=== PATIENT | female | born 1960 | race Caucasian/White ===

== ENCOUNTER 2017-05-09 12:52 | Emergency (ER) | payer OTHER ==
[2017-05-09 12:57] VITALS: BP 149/74
--- NOTE | 2017-05-09 13:48 | ER Document Report ---
HPI - HPI Pain Level: 4 Notes: Patient is a 57-year-old female with history of chronic pain and under pain management who presents the ED for second opinion about her shingles as she was not given any pain medication or antiviral medication. Patient states that she was diagnosed with shingles by the urgent care today, and that her symptoms started on Friday with a rash. Patient states that she had a burning sensation prior to the development of the rash and the rash has been painful since then. Patient noticed that she did have small little blisters that were there that have since crusted over. Patient states that overall the pain has not been worsening. She has not noticed any purulent discharge or red streaks. Her pain management clinic told her that she could not take extra pain medication because of a shingles outbreak. Patient states that the urgent care did not give her any pain medication or any antiviral. Patient states that no antiviral was given because it was too late. No other concerns or complaints at this time. Patient has not noticed any changes in her hearing or changes in her vision. Denies any headache, fever, head injury, neck pain, changes in vision/speech/mentation/hearing, URI, sore throat, chest pain, palpitations, syncope, cough, shortness of breath, wheeze, dyspnea, abdominal pain, nausea/ vomiting/diarrhea, urinary retention, dysuria, hematuria. Denies any drug allergies or significant past medical history otherwise. - ROS Notes: REVIEW OF SYSTEMS: CONSTITUTIONAL : Denies fever, chills, or sweats. Denies recent illness. EENT: Denies eye, ear, throat, or mouth pain or symptoms. Denies nasal or sinus congestion or discharge. Denies throat, tongue, or mouth swelling or difficulty swallowing. CARDIOVASCULAR: Denies chest pain. Denies palpitations or racing or irregular heart beat. Denies ankle edema. RESPIRATORY: Denies cough, cold, or chest congestion. Denies shortness of breath, difficulty breathing, or wheezing. GASTROINTESTINAL: Denies abdominal pain or distention. Denies nausea, vomiting , or diarrhea. Denies blood in vomitus, stools, or per rectum. Denies black, tarry stools. Denies constipation. GENITOURINARY: Denies difficulty urinating, painful urination, burning, frequency, blood in urine, or discharge. MUSCULOSKELETAL: Chronic pain. SKIN: see hpi NEUROLOGICAL: Denies confusion or altered mental status. Denies passing out or loss of consciousness. Denies dizziness or lightheadedness. Denies headache. Denies weakness or paralysis or loss of use of either side. Denies problems with gait or speech. Denies sensory loss, numbness, or tingling. Denies seizures. PSYCHIATRIC: Denies anxiety or stress. Denies depression, suicidal ideation, or homicidal ideation. ALL OTHER SYSTEMS REVIEWED AND NEGATIVE. Dictation was performed using [employer] voice recognition software - DERM Skin Color: Normal Past Medical History - Social History Smoking Status: Unknown if Ever Smoked Family History: Reviewed & Not Pertinent Renal/ Medical History: Denies: Hx Peritoneal Dialysis Vertical Provider Document - CONSTITUTIONAL Agree With Documented VS: Yes Notes: PHYSICAL EXAMINATION: GENERAL: Well-appearing, well-nourished and in no acute distress. HEAD: Atraumatic, normocephalic. EYES: Pupils equal round and reactive to light, extraocular movements intact, sclera anicteric, conjunctiva are normal. Funduscopic exam unremarkable. ENT: EAC clear b/l. TM's intact b/l without erythema, fluid, or perforation. Nares patent and without discharge. oropharynx clear without exudates. No tonsilar hypertrophy or erythema. Moist mucous membranes. No sinus tenderness. NECK: Normal range of motion, supple without lymphadenopathy. No rigidity/ meningismus. LUNGS: Breath sounds clear to auscultation bilaterally and equal. No wheezes rales or rhonchi. HEART: Regular rate and rhythm without murmurs, rubs, gallops. Extremities: No cyanosis, clubbing, or edema b/l. Peripheral pulses 2+. Capillary refill less than 3 seconds. NEUROLOGICAL: Cranial nerves grossly intact. Normal speech, normal gait. Normal sensory, motor exams PSYCH: Normal mood, normal affect. SKIN: crusted over lesions on erythematous base. Unilateral to left mid forehead w/o involvement of the eyes or ears. She has a few lesions to the scalp and a patch of lesions to her forehead. + mild tenderness w/o cellulitis/ abscess or discharge. - INFECTION CONTROL TRAVEL OUTSIDE OF THE [place] IN LAST 30 DAYS: No - RESPIRATORY O2 Sat by Pulse Oximetry: 96 Course - Re-evaluation Re-evalutation: 05/09/17 13:46 Patient is an afebrile, well-hydrated, 57-year-old female who presents the ED with suspected shingles based on H&P today. Vitals are stable. PE otherwise unremarkable for any eye or ear involvement. It appears as though she is beyond the time for treatment based on history and physical exam today. I will send her home with a prescription for naproxen that she can take as needed. Conservative measures for symptoms otherwise. Recheck with your PCM in 2-3 days. Advised patient that with any vision changes or eye pain that she should get evaluated with ophthalmology. Return to the ED with any worsening/ concerning symptoms otherwise as reviewed discharge. Low suspicion/risk for any other emergent systemic condition at this time. Patient is in agreement. - Vital Signs Vital signs: Temp Pulse Resp BP Pulse Ox 98.4 F 78 20 149/74 H 96 05/09/17 12:55 05/09/17 12:55 05/09/17 12:55 05/09/17 12:55 05/09/17 12:55 Discharge - Discharge Clinical Impression: Herpes zoster Qualifiers: Herpes zoster complications: without complications Qualified Code(s): B02.9 - Zoster without complications Condition: Stable Disposition: HOME, SELF-CARE Instructions: Shingles ([facility]) Additional Instructions: Keep skin clean and dry Warm/cool compresses may help Tylenol/ibuprofen as needed You may use naproxen as needed in lieu of ibuprofen Recheck with your PCM in 2-3 days Schedule consult with ophthalmology for a recheck as well Return to the ED with any worsening symptoms and/or development of fever, headache, changes in vision/hearing, eye pain, ear pain, chest pain, palpitations, syncope, shortness of breath, trouble breathing, abdominal pain, n /v/d, or other worsening symptoms that are concerning to you. Prescriptions: Naproxen 500 mg PO BID PRN #30 tablet PRN Reason: Forms: Elevated Blood Pressure Referrals: OJSE ARENAS DO [ACTIVE STAFF] - 05/12/17
== END 2017-05-09 14:22 | disposition home or self-care (01) ==
LOC: ER 12:52
DX: B02.9 Zoster without complications (principal); G89.29 Other chronic pain; Z79.899 Other long term (current) drug therapy
CPT/HCPCS: 99283

== ENCOUNTER 2017-11-15 14:59 | Emergency (ER) | payer OTHER ==
--- NOTE | 2017-11-15 15:56 | ER Document Report ---
HPI - HPI Pain Level: 4 Notes: Patient is a 57-year-old female who presents to the ED complaining of right lateral ankle pain status post injury prior to arrival. Patient states that she is going on a step when she rolled her ankle. Patient has noticed swelling to the lateral right ankle and difficulty weightbearing because of the pain. Patient states that the pain does not radiate. She denies any significant past medical history associated. Denies any drug allergies. No other concerns or complaints at this time. Patient denies any IV drug use. Denies any headache, fever, neck pain, head injury, LOC, URI, sore throat, chest pain, palpitations, syncope, cough, shortness of breath, wheeze, dyspnea, abdominal pain, nausea/ vomiting/diarrhea, urinary retention, dysuria, hematuria, loss of control of bowel or bladder, numbness/tingling, saddle anesthesia, muscle paralysis/ weakness, or rash. - ROS Systems Reviewed and Negative: Yes All other systems reviewed and negative - MUSCULOSKELETAL Musculoskeletal: REPORTS: Extremity pain Past Medical History - Social History Smoking Status: Unknown if Ever Smoked Family History: Reviewed & Not Pertinent Patient has suicidal ideation: No Patient has homicidal ideation: No Renal/ Medical History: Denies: Hx Peritoneal Dialysis Vertical Provider Document - CONSTITUTIONAL Agree With Documented VS: Yes Notes: PHYSICAL EXAMINATION: GENERAL: Well-appearing, well-nourished and in no acute distress. LUNGS: Breath sounds clear to auscultation bilaterally and equal. No wheezes rales or rhonchi. HEART: Regular rate and rhythm without murmurs, rubs, gallops. Musculoskeletal: Rt ankle: + swelling to the lateral malleolus. + tenderness to that area as well. No other bony tenderness to the foot/ankle. N/V intact distal. Achilles intact. LROM to passive/active. Strength 4+/5 due to pain to eversion. Extremities: No cyanosis, clubbing, or edema b/l. Peripheral pulses 2+. Capillary refill less than 3 seconds. NEUROLOGICAL: Normal speech, limping gait. Normal sensory, motor exams PSYCH: Normal mood, normal affect. SKIN: Warm, Dry, normal turgor, no rashes or lesions noted. - INFECTION CONTROL TRAVEL OUTSIDE OF THE [place] IN LAST 30 DAYS: No Course - Re-evaluation Re-evalutation: 11/15/17 16:50 Patient is an afebrile, well-hydrated, 57-year-old female who presents to the ED with a distal lateral malleolus/fibular fracture as well as a stage 2 appearing talus dome fracture (nondisplaced). Vitals are acceptable. PE is otherwise unremarkable for any neurovascular compromise, obvious tendon/ ligament rupture, open fracture, septic joint. See x-ray result. Patient declined any Tylenol/Motrin at this time. Posterior ankle splint was placed today. Crutches provided. I will send her home with a Nova Lignum dispense pack. Conservative measures otherwise for symptoms. Recheck with your PCM in 1 week. Schedule an appointment with orthopedics for further evaluation and management. Return to the ED with any worsening/concerning symptoms otherwise as reviewed discharge. Patient is in agreement. - Vital Signs Vital signs: Temp Pulse Resp BP Pulse Ox 97.6 F 82 18 126/67 H 94 11/15/17 15:07 11/15/17 15:07 11/15/17 15:07 11/15/17 15:07 11/15/17 15:07 Procedures - Immobilization Right Ankle Time completed: 16:50 Pre-Proc Neuro Vasc Exam: Normal Immobilizer type: Posterior ankle Performed by: PCT Post-Proc Neuro Vasc Exam: Normal, Unchanged from pre-exam Discharge - Discharge Clinical Impression: Closed fracture of right distal fibula Qualifiers: Encounter type: initial encounter Fracture morphology: unspecified fracture morphology Qualified Code(s): S82.831A - Other fracture of upper and lower end of right fibula, initial encounter for closed fracture Talar dome fracture Qualifiers: Encounter type: initial encounter Fracture type: closed Fracture alignment: nondisplaced Laterality: right Qualified Code(s): S92.144A - Nondisplaced dome fracture of right talus, initial encounter for closed fracture Condition: Stable Disposition: HOME, SELF-CARE Instructions: Use of Crutches ([facility]), Fracture of Distal Fibula ([facility]), Oral Narcotic Medication ([facility]) Additional Instructions: Rest, Ice, Compression, Elevation Use crutches/splint as directed Tylenol/ibuprofen as needed Light stretches daily Strength exercises as able Moist heat and massage may help F/u with your PCP in 1 week for a recheck Schedule an appointment with orthopedics for further evaluation and management Return to the ED with any worsening symptoms and/or development of fever, headache, chest pain, palpitations, syncope, shortness of breath, trouble breathing, abdominal pain, n/v/d, muscle weakness/paralysis, numbness/tingling, swelling, redness, or other worsening symptoms that are concerning to you. Forms: Elevated Blood Pressure, Smoking Cessation Education Referrals: [facility] [Provider Group] - Follow up in 3-5 days
[2017-11-15] MEDS ORDERED: HYDROCODONE/ACETAMINOPHEN 5-325 MG (6 TAB/ER DISP) PO PRN (16:16)
--- NOTE | 2017-11-15 16:20 | RADIOLOGY REPORT (SQ) ---
EXAM DESCRIPTION: ANKLE RIGHT COMPLETE COMPLETED DATE/TIME: 11/15/2017 4:00 pm REASON FOR STUDY: rt lateral ankle pain s/p injury COMPARISON: None. NUMBER OF VIEWS: Three views. TECHNIQUE: AP, lateral, and oblique radiographic images acquired of the right ankle. LIMITATIONS: None. FINDINGS: MINERALIZATION: Normal. BONES: Mildly displaced oblique fracture of the fibular tip. Additionally, a subtle linear lucency t raverses the lateral aspect of the talar dome, suspicious for nondisplaced fracture. Calcaneal enthe sopathy is present. JOINTS: The tibiotalar joint effusion is present. SOFT TISSUES: Soft tissue swelling overlies the injury site. No retained radiopaque foreign body. OTHER: No other significant finding. IMPRESSION: Mildly displaced oblique fracture of the distal fibula. Additional finding of linear marques cency traversing the lateral aspect of the talar dome is highly suspicious for an additional nondispl aced fracture. Recommend correlation with mechanism of injury. TECHNICAL DOCUMENTATION: JOB ID: [id number] [email or web address]- All Rights Reserved Reading location - IP/workstation name: [email or web address]
[2017-11-15 17:01] VITALS: BP 118/70
== END 2017-11-15 17:03 | disposition home or self-care (01) ==
LOC: ER 14:59
DX: S82.431A Displaced oblique fracture of shaft of right fibula, initial encounter for closed fracture (principal); S92.144A Nondisplaced dome fracture of right talus, initial encounter for closed fracture; W10.9XXA Fall (on) (from) unspecified stairs and steps, initial encounter; Y92.830 Public park as the place of occurrence of the external cause
CPT/HCPCS: 99283

== ENCOUNTER 2018-11-15 12:14 | Observation (INO) | payer OTHER ==
[2018-11-15 12:24] LABS: ABSOLUTE EOSINOPHILS # (AUTO) 0.1 10^3/uL (0.0-0.6); ABSOLUTE LYMPHOCYTES (AUTO) 4.1 10^3/uL (0.5-4.7); ABSOLUTE MONOCYTES (AUTO) 0.9 10^3/uL (0.1-1.4); ABSOLUTE NEUT (AUTO) 4.2 10^3/uL (1.7-8.2); BASOPHILS % (AUTO) 0.4 % (0-2); EOSINOPHILS % (AUTO) 0.9 % (0-6); HEMATOCRIT 39.7 % (36.0-47.0); LYMPHOCYTES % (AUTO) 43.7 % (13-45); MEAN CORPUSCULAR HEMOGLOBIN 34.8 pg (27.0-33.4); MEAN CORPUSCULAR HGB CONC 35.2 g/dL (32.0-36.0); MEAN CORPUSCULAR VOLUME 99 fl (80-97); MONOCYTES % (AUTO) 9.7 % (3-13); PLATELET COUNT 233 10^3/uL (150-450); RED BLOOD COUNT 4.01 10^6/uL (3.72-5.28); RED CELL DISTRIBUTION WIDTH 12.8 % (11.5-14.0); SEGMENTED NEUTROPHILS % (AUTO) 45.3 % (42-78); TOTAL CELLS COUNTED % (AUTO) 100 %; WHITE BLOOD COUNT 9.3 10^3/uL (4.0-10.5)
--- NOTE | 2018-11-15 12:33 | RADIOLOGY REPORT (SQ) ---
EXAM DESCRIPTION: CT HEAD WITHOUT COMPLETED DATE/TIME: 11/15/2018 12:25 pm REASON FOR STUDY: stroke s/s COMPARISON: None. TECHNIQUE: Axial images acquired through the brain without intravenous contrast. Images reviewed wi th bone, brain and subdural windows. Additional sagittal and coronal reconstructions were generated. Images stored on PACS. All CT scanners at this facility use dose modulation, iterative reconstruction, and/or weight based d osing when appropriate to reduce radiation dose to as low as reasonably achievable (ALARA). [facility]: Dose Right [facility]: CareDose [facility]: Dose Right [facility]: Teradose 4D [facility]: TotalTakeout RADIATION DOSE: 53 mGy. LIMITATIONS: None. FINDINGS: VENTRICLES: Normal size and contour. CEREBRUM: No masses. No hemorrhage. No midline shift. No evidence for acute infarction. Normal gra y/white matter differentiation. No areas of low density in the white matter. CEREBELLUM: No masses. No hemorrhage. No alteration of density. No evidence for acute infarction. EXTRAAXIAL SPACES: No fluid collections. No masses. ORBITS AND GLOBE: No intra- or extraconal masses. Normal contour of globe without masses. CALVARIUM: No fracture. PARANASAL SINUSES: No fluid or mucosal thickening. SOFT TISSUES: No mass or hematoma. OTHER: No other significant finding. IMPRESSION: NORMAL BRAIN CT WITHOUT CONTRAST. EVIDENCE OF ACUTE STROKE: NO. COMMENT: Pertinent findings on the imaging study reported as a CRITICAL RESULT to Dr BROWN at12:18 on 11/15/2018. Category of Critical Result: CT code stroke Quality ID # [id number]: Final reports with documentation of one or more dose reduction techniques (e.g., Au tomated exposure control, adjustment of the mA and/or kV according to patient size, use of iterative reconstruction technique) TECHNICAL DOCUMENTATION: JOB ID: [id number] [employer]- All Rights Reserved Reading location - IP/workstation name: [email or web address]
--- NOTE | 2018-11-15 12:39 | RADIOLOGY REPORT (SQ) ---
EXAM DESCRIPTION: CHEST SINGLE VIEW COMPLETED DATE/TIME: 11/15/2018 12:27 pm REASON FOR STUDY: stroke s/s COMPARISON: CT chest 11/21/2009 Two-view chest 11/22/2010 EXAM PARAMETERS: NUMBER OF VIEWS: One view. TECHNIQUE: Single frontal radiographic view of the chest acquired. RADIATION DOSE: NA LIMITATIONS: None. FINDINGS: LUNGS AND PLEURA: No opacities, masses or pneumothorax. No pleural effusion. MEDIASTINUM AND HILAR STRUCTURES: No masses. Contour normal. HEART AND VASCULAR STRUCTURES: Heart normal in size. Normal vasculature. BONES: No acute findings. HARDWARE: None in the chest. OTHER: No other significant finding. IMPRESSION: NO ACUTE RADIOGRAPHIC FINDING IN THE CHEST. TECHNICAL DOCUMENTATION: JOB ID: [id number] [employer]- All Rights Reserved Reading location - IP/workstation name: [email or web address]
[2018-11-15 12:40] LABS: ALANINE AMINOTRANSFERASE 59 U/L (9-52); ALKALINE PHOSPHATASE 76 U/L (38-126); ANION GAP 9 (5-19); ASPARTATE AMINO TRANSFERASE 44 U/L (14-36); BILIRUBIN,DIRECT 0.2 mg/dL (0.0-0.4); BILIRUBIN,TOTAL 0.4 mg/dL (0.2-1.3); BLOOD UREA NITROGEN 22 mg/dL (7-20); CALCIUM 9.3 mg/dL (8.4-10.2); CARBON DIOXIDE 26 mmol/L (22-30); CHLORIDE 107 mmol/L (98-107); CREATINE KINASE 53 U/L (30-135); GLUCOSE 144 mg/dL (75-110); POTASSIUM 3.2 mmol/L (3.6-5.0); SODIUM 141.6 mmol/L (137-145); TOTAL PROTEIN 6.8 g/dL (6.3-8.2)
[2018-11-15 12:42] LABS: INTERNATIONAL RATION (INR) 0.93; PARTIAL THROMBOPLASTIN TIME 25.4 SEC (23.5-35.8)
[2018-11-15 12:45] LABS: PROTHROMBIN TIME 12.9 SEC (11.4-15.4)
[2018-11-15 12:51] LABS: CREATINE KINASE MB 0.49 ng/mL (<4.55)
[2018-11-15 12:53] LABS: TROPONIN I < 0.012 ng/mL
--- NOTE | 2018-11-15 16:46 | ER Document Report ---
Entered by DARIUS SHETTY SCRIBE 11/15/18 [id number] Acting as scribe for:JACOB MARTI MD ED General - General Chief Complaint: S/S of Possible Stroke Stated Complaint: POSSIBLE STROKE Time Seen by Provider: 11/15/18 13:07 Primary Care Provider: NINA SR DO [Primary Care Provider] - Follow up as needed Mode of Arrival: Ambulatory Information source: Patient, Relative, Emergency Med Personnel, [facility] Records Notes: Patient is a 58 year old female presenting to the emergency department via EMS accompanied by son complaining of a possible stroke onset around 1100. Patient states she was sitting at the counter with her grandaughter when she proceeded to feel light headed. She states the next thing she remembers is waking up on the floor. Son at bedside states the patient was complaining of light headedness then turned around to face him and he noted she has some left facial droop. He states she then proceeded to have a syncopal episode and states he caught the patient and laid her on the floor. Son reports the patient was unconscious for approximately 4 minutes and began talking 10 minutes after arrival. He states the patient appears very sleepy and notices she snores copiously at night. Patient denies any injury and states she has no focal pain. Patient's PCP is Dr. Sr. She states she is on chronic pain treatment for plantar fasciitis which she takes 7.5 of [place]. The patient's son reports that he witnessed her complaining of being lightheaded dizzy, when she turned he saw what appeared to be left face drooping, he caught her as she was falling and lowered her to the floor. He reports she was unresponsive about 4 minutes, then open her eyes but did not seem to be aware of her surroundings. She began talking about the time the EMS showed up with house, and became alert coherent about the time she arrived at the hospital. The patient's speech, thought content, motor function all appear to be returning to baseline according to the son. The patient is quite drowsy, and falls asleep when not stimulated. As her symptoms are improving, she is not a candidate for TPA. TRAVEL OUTSIDE OF THE [place] IN LAST 30 DAYS: No - Related Data Allergies/Adverse Reactions: latex Allergy (Verified 11/15/17 15:05) Past Medical History - General Information source: Patient, Relative, Emergency Med Personnel, [facility] Records - Social History Smoking Status: Current Every Day Smoker Cigarette use (# per day): Yes - 1 PPD Chew tobacco use (# tins/day): No Smoking Education Provided: No Frequency of alcohol use: Heavy - Son reports finding a bottle of Gin in patients bathroom Lives with: Family Family History: Reviewed & Not Pertinent Review of Systems - Review of Systems Constitutional: No symptoms reported EENT: No symptoms reported Cardiovascular: See HPI, Syncope, Lightheaded Respiratory: No symptoms reported Gastrointestinal: No symptoms reported Genitourinary: No symptoms reported Female Genitourinary: No symptoms reported Musculoskeletal: No symptoms reported Skin: No symptoms reported Hematologic/Lymphatic: No symptoms reported Neurological/Psychological: See HPI, Lost consciousness -: Yes All other systems reviewed and negative Physical Exam - Vital signs Vitals: Pulse Ox 95 11/15/18 12:19 - Notes Notes: GENERAL: Drowsy, falls asleep frequently, easily arousable. HEAD: Normocephalic, atraumatic. No facial droop. EYES: Pupils equal, round, and reactive to light. Extraocular movements intact. ENT: Oral mucosa moist. Tongue midline, no deviation. NECK: Full range of motion. Supple. Trachea midline. No bruits. LUNGS: Clear to auscultation bilaterally, no wheezes, rales, or rhonchi. No r espiratory distress. HEART: Regular rate and rhythm. No murmurs, gallops, or rubs. ABDOMEN: Soft, obese, non-tender. Non-distended. Bowel sounds present in all 4 quadrants. No guarding, rigidity, or rebound. EXTREMITIES: Moves all 4 extremities spontaneously. NEUROLOGICAL: Alert and oriented x3. Normal speech. Drowsy, falls asleep frequently, easily arousable. 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 Barely able to elevate legs off of bed, R weaker than L. Negative babinski. PSYCH: Normal affect, normal mood. SKIN: Warm, dry, normal turgor. No rashes or lesions noted. Course - Re-evaluation Re-evalutation: 11/15/18 16:29 At this time the patient's symptoms have completely resolved, she is sitting up on side of the bed alert oriented with perfectly clear speech and thought processes. We had a long discussion with the patient and her son about TIAs, risks of stroke, and workup to identify correctable causes. - Vital Signs Vital signs: Temp Pulse Resp BP Pulse Ox 98.0 F 73 18 166/78 H 95 11/15/18 15:37 11/15/18 15:00 11/15/18 15:37 11/15/18 15:37 11/15/18 15:37 - Laboratory Result Diagrams: 11/15/18 12:17 11/15/18 12:17 Laboratory results interpreted by me: 11/15/18 11/15/18 11/15/18 12:17 12:17 12:27 MCV 99 H MCH 34.8 H Potassium 3.2 L BUN 22 H Glucose 144 H POC Glucose 135 H AST 44 H ALT 59 H - Diagnostic Test Radiology reviewed: Reports reviewed - CT scan of the brain is normal. - EKG Interpretation by Me EKG shows normal: Sinus rhythm, [place], Intervals, QRS Complexes, ST-T Waves Rate: Normal - 90 Rhythm: NSR - Consults Dr. Gregory Time consulted: 16:00 Consulted provider: will come to ER - admit to [facility] Critical Care Note - Critical Care Note Total time excluding time spent on procedures (mins): 38 Discharge - Discharge Clinical Impression: Syncope and collapse, Transient ischemic attack (TIA) Condition: Stable Disposition: ADMITTED INPATIENT Admitting Provider: Hospitalist Unit Admitted: [facility] Referrals: NINA SR DO [Primary Care Provider] - Follow up as needed ED [employer]/Exc Criteria - Inclusion Criteria: 1: Patient presented to ED within 3 hours of acute ischemic stroke symptom onset? -: Yes 2: Did baseline CT exclude intracranial hemorrhage and/or other risk factors? -: Yes 3: Is the age of the patient 18 years of age or greater? -: Yes : If any of the above questions are answered "NO" then stop, patient is not a candidate for Alteplase, : If all of the above questions are answered "YES" then continue with Exclusion Criteria. - Exclusion Criteria: 1: Is there evidence of intracranial hemorrhage on baseline CT? -: No 2: Is there suspicion of subarachnoid hemorrhage (even if CT negative)? -: No 3: Is there a history of serious head trauma, recent previous stroke or NM within 3 months? -: No 4: Does the patient have a clinical presentation consistent with NM or post-NM pericarditis? -: No 5: Is there history of intracranial hemorrhage? -: No 6: On repeated measurement is Systolic BP greater than 185mmHg or Diastolic BP greater that 110 mmHg and is aggressive treatment needed to reduce blood pressure to these limits (e.g. constant infusion of an anti-hypertensive)? -: No 7: Did the patient awake with stroke symptoms? -: No 8: Has the patient had a lumbar puncture or an arterial puncture at a non- compressile site within 7 days? 9: With in the last 14 days did the patient have surgery or major trauma? -: No 10: Is the patient or less than 2 weeks? -: No 11: Was there any active bleeding or acute trauma? -: No 12: Does the patient have intracranial neoplasm, arteriovenous malformation or aneurysm? -: No 13: Does the patient have abnormal glucose (less than 50 or greater than 400mg/dl)? Record glucose in Comment. -: No 14: Patient has rapidly improving symptoms at the time Alteplase is to be Administered. -: Yes 15: Does the patient have any risks for bleeding, including but not limited to: a.: Current use of Coumadin with PT greater than 15 seconds or INR greater than 1.7. b.: Current use of Pradaxa (Dabigatran). c.: Heparin administereed within the past 48 hours and PTT elevated. d.: Platelet count less than 100,000/mm. e.: Major surgery or serious trauma within 14 days. f.: Gastrointestinal or gynecological urinary bleeding within 14 days. g.: Myocardial Infarction (NM) within 3 months. -: No : If the answer to any of the above questions is "YES" then stop, the patient is not a candidate for Alteplase. : If the answer to all of the above questions is "NO" then the patient may be eligible for the Administration of Alteplase. : If the patient is noted to have seizure activity at onset of Stroke symptoms; Consult Neurologist for further evaluation. - The patient is: -: Included and is eligible to receive Alteplase. *Initiate bed placement at [facility] level of care* Reviewed risks & benefits of thrombolytic therapy: I have reviewed the risks and benefits of thrombolytic therapy with the patient and/or his/her family. -: Excluded and not eligible to receive Alteplase for the above exclusions. -: Excluded and not eligible to receive Alteplase for other reasons (specify in comments): - Diagnosis of TIA: -: Patient presented with transient symptoms that are now resolved and no other neurologic findings are currently present. List symptoms in comments. -: Patient is NOT a candidate for tPA. -: ____(put name in comment) has been consulted for admission and continued evaluation of risk factor assessment. I personally performed the services described in the documentation, reviewed and edited the documentation which was dictated to the scribe in my presence, and it accurately records my words and actions.
[2018-11-15] MEDS ORDERED: OXYCODONE-ACETAMINOPHEN 5-325 MG TABLET PO PRN (18:09)
[2018-11-15] MEDS ORDERED: PROMETHAZINE HCL 25 MG TABLET PO PRN (18:09)
[2018-11-15] MEDS ORDERED: DEXTROSE 50%-WATER 25 GM/50 ML DISP.SYRIN IV PRN ×2 (18:09)
[2018-11-15] MEDS ORDERED: DEXTROSE 5%-NORMAL SALINE 1,000 ML IV PRN (18:09)
[2018-11-15] MEDS ORDERED: ONDANSETRON 4 MG TAB.RAPDIS PO PRN (18:09)
[2018-11-15] MEDS ORDERED: ACETAMINOPHEN 325 MG TABLET PO PRN (18:09)
[2018-11-15] MEDS ORDERED: GLUCAGON,HUMAN RECOMB 1 MG INJ SUBCUT PRN (18:09)
[2018-11-15] MEDS ORDERED: IPRATROPIUM/ALBUTEROL 0.5-2.5 MG/3 ML AMPUL NEB PRN (18:09)
[2018-11-15] MEDS ORDERED: DEXTROSE 40% GEL 15 GM TUBE PO PRN ×2 (18:09)
--- NOTE | 2018-11-15 18:09 | PDOC H&P ---
History of Present Illness Admission Date/PCP: 11/15/18 17:01 NINA SR DO History of Present Illness: JEFFRY ZHANG is a 58 year old female past medical history of hypertension, dyslipidemia, tobacco abuse (30 years), depression, plantar fasciitis was brought to ED by EMS for possible stroke. As per family she was sitting at the counter with her grandaughter when she proceeded to feel light headed. For the next thing patient remembers is waking up in the ED. Does not recall any preceding symptoms. As per ED physician's conversation with the son who was present at the time of arrival he stated patient was complaining of light headedness then turned around to face him and he noted she has some left facial droop and then had a syncopal episode and he caught the patient and laid her on the floor. Son reports the patient was unconscious for approximately 4 minutes and began talking 10 minutes after arrival. Upon arrival to ED patient's speech, thought content, motor function all appear to be returning to baseline according to the son, but she seemed to the patient is quite drowsy, and falls asleep when not stimulated. On my encounter after 5 PM patient is comfortably resting in bed in no apparent distress, alert oriented x4, normal speech, does not recall any events except the fact that she was standing at the counter and the next thing she remembers she was in the hospital. Denies any preceding events. Denies any history of head trauma, seizure disorders, recreational drug abuse, arrhythmia, CAD, prior TIA or CVA, any recent illness. Denies any fever, chills, nausea, vomiting, diarrhea, constipation or any urinary symptoms. Physical examination patient is nonfocal, speech, thought content seem to be within normal limits. A CT head in ED did not show any acute abnormalities. Was found to have a blood pressure of 150s-170s, otherwise CMP, CBC, troponins, UA all within normal limits. Social History Lives with: Family Smoking Status: Current Every Day Smoker Family History Family History: Reviewed & Not Pertinent Parental Family History Reviewed: Yes Children Family History Reviewed: Yes Sibling(s) Family History Reviewed.: Yes Medication/Allergy Home Medications: Naproxen 500 mg PO BID PRN #30 tablet 05/09/17 Allergies/Adverse Reactions: latex Allergy (Verified 11/15/17 15:05) Review of Systems Review of Systems: Per HPI. Physical Exam Vital Signs: Temp Pulse Resp BP Pulse Ox 98.0 F 73 14 168/87 H 94 11/15/18 15:37 11/15/18 15:00 11/15/18 17:01 11/15/18 17:01 11/15/18 17:01 Intake & Output 11/14/18 11/15/18 11/16/18 06:59 06:59 06:59 Weight 81.7 kg General appearance: PRESENT: no acute distress, well-developed, well-nourished Head exam: PRESENT: atraumatic, normocephalic Eye exam: PRESENT: conjunctiva pink, EOMI, PERRLA. ABSENT: scleral icterus Ear exam: PRESENT: normal external ear exam Respiratory exam: PRESENT: clear to auscultation anyi. ABSENT: rales, rhonchi, wheezes Cardiovascular exam: PRESENT: RRR. ABSENT: diastolic murmur, rubs, systolic murmur Pulses: PRESENT: normal dorsalis pedis pul GI/Abdominal exam: PRESENT: normal bowel sounds, soft. ABSENT: distended, guarding, mass, organolmegaly, rebound, tenderness Extremities exam: PRESENT: full ROM. ABSENT: calf tenderness, clubbing, pedal edema Neurological exam: PRESENT: alert, awake, oriented to person, oriented to place, oriented to time, oriented to situation, CN II-XII grossly intact. ABSENT: motor sensory deficit Psychiatric exam: PRESENT: appropriate affect, normal mood. ABSENT: homicidal ideation, suicidal ideation Skin exam: PRESENT: dry, intact, warm. ABSENT: cyanosis, rash Results Laboratory Results: 11/15/18 12:17 11/15/18 12:17 11/15/18 11/15/18 12:17 12:17 WBC 9.3 RBC 4.01 Hgb 14.0 Hct 39.7 MCV 99 H MCH 34.8 H MCHC 35.2 RDW 12.8 Plt Count 233 Seg Neutrophils % 45.3 Lymphocytes % 43.7 Monocytes % 9.7 Eosinophils % 0.9 Basophils % 0.4 Absolute Neutrophils 4.2 Absolute Lymphocytes 4.1 Absolute Monocytes 0.9 Absolute Eosinophils 0.1 Absolute Basophils 0.0 Sodium 141.6 Potassium 3.2 L Chloride 107 Carbon Dioxide 26 Anion Gap 9 BUN 22 H Creatinine 0.58 Est GFR ( Amer) > 60 Est GFR (Non-Af Amer) > 60 Glucose 144 H Calcium 9.3 Total Bilirubin 0.4 AST 44 H ALT 59 H Alkaline Phosphatase 76 Total Protein 6.8 Albumin 4.0 11/15/18 11/15/18 12:17 12:17 Creatine Kinase 53 CK-MB (CK-2) 0.49 Troponin I < 0.012 Impressions: Chest X-Ray 11/15/18 12:19 IMPRESSION: NO ACUTE RADIOGRAPHIC FINDING IN THE CHEST. Head CT 11/15/18 12:19 IMPRESSION: NORMAL BRAIN CT WITHOUT CONTRAST. EVIDENCE OF ACUTE STROKE: NO. Assessment and Plan - Diagnosis (1) Transient ischemic attack Is this a current diagnosis for this admission?: Yes Plan: Nonfocal. Back to baseline. CT head negative. MRI/MRA head, bilateral carotid Doppler, 2D echo. Fall, seizure, aspiration precautions. Admit to IMCU continue telemetry. Aspirin, high intensity statins optimize blood pressure. Strongly counseled on quitting smoking. NicoDerm patch. PT , OT, ST (2) Syncope and collapse Is this a current diagnosis for this admission?: Yes Plan: As per #1 (3) HTN (hypertension) Is this a current diagnosis for this admission?: No Plan: Permissive hypertension for the next 24 hours. PRN hydralazine for SBP>200 medic. Restart home meds and optimize blood pressure once appropriate. (4) Hyperlipidemia Is this a current diagnosis for this admission?: No Plan: Lipid panel. High intensity statins. (5) Depression Is this a current diagnosis for this admission?: No Plan: Eyes any suicidal or homicidal ideation. Start home meds. Outpatient PCP follow-up. (6) Tobacco abuse Is this a current diagnosis for this admission?: No Plan: Strongly advised about quitting. Start on NicoDerm patch. (7) Plantar fasciitis Is this a current diagnosis for this admission?: No Plan: Status post surgery. Persistent pain due to plantar fasciitis. Managed by Dr. Sr as outpatient. Start home meds. (8) Hypokalemia Is this a current diagnosis for this admission?: Yes Plan: Replaced. CMP tomorrow. (9) Obesity (BMI 30.0-34.9) Is this a current diagnosis for this admission?: Yes Plan: Diet and lifestyle modifications.
[2018-11-15] MEDS ORDERED: HYDRALAZINE HCL INJ/PF 20 MG/1 ML SDV IV PRN (18:13)
[2018-11-15] MEDS ORDERED: NICOTINE 14 MG/24 HR PATCH.TD24 TD PRN (18:15)
[2018-11-15] MEDS ORDERED: LORAZEPAM INJ 2 MG/1 ML VIAL IV PRN (18:17)
[2018-11-15] MEDS ORDERED: ASPIRIN 81 MG TABLET, CHEWABLE PO ONE (19:00)
--- NOTE | 2018-11-15 20:13 | EKG REPORT ---
SEVERITY:- NORMAL ECG - SINUS RHYTHM : Confirmed by: Tonia Resee MD 15-Nov-2018 20:12:40
[2018-11-15 20:34] LABS: URINE AMPHETAMINES SCREEN NEGATIVE; URINE BARBITURATES SCREEN NEGATIVE; URINE BENZODIAZEPINES SCREEN NEGATIVE; URINE COCAINE SCREEN NEGATIVE; URINE MARIJUANA (THC) SCREEN NEGATIVE; URINE METHADONE SCREEN NEGATIVE; URINE PHENCYCLIDINE SCREEN NEGATIVE
[2018-11-15] MEDS: HEPARIN SOD (PORCINE) 5,000 UNIT/ML 1 ML SYRINGE SUBCUT SCH (21:58)
[2018-11-15] MEDS: ATORVASTATIN CALCIUM 40 MG TABLET PO SCH (21:58)
[2018-11-15] MEDS: FAMOTIDINE 20 MG TABLET PO SCH (21:58)
[2018-11-16 05:20] LABS: ABSOLUTE EOSINOPHILS # (AUTO) 0.1 10^3/uL (0.0-0.6); ABSOLUTE LYMPHOCYTES (AUTO) 3.1 10^3/uL (0.5-4.7); ABSOLUTE MONOCYTES (AUTO) 0.7 10^3/uL (0.1-1.4); ABSOLUTE NEUT (AUTO) 3.5 10^3/uL (1.7-8.2); BASOPHILS % (AUTO) 0.3 % (0-2); EOSINOPHILS % (AUTO) 1.3 % (0-6); HEMATOCRIT 40.2 % (36.0-47.0); HEMOGLOBIN 13.9 g/dL (12.0-15.5); LYMPHOCYTES % (AUTO) 41.8 % (13-45); MEAN CORPUSCULAR HEMOGLOBIN 34.3 pg (27.0-33.4); MEAN CORPUSCULAR HGB CONC 34.6 g/dL (32.0-36.0); MEAN CORPUSCULAR VOLUME 99 fl (80-97); MONOCYTES % (AUTO) 9.7 % (3-13); PLATELET COUNT 196 10^3/uL (150-450); RED BLOOD COUNT 4.06 10^6/uL (3.72-5.28); RED CELL DISTRIBUTION WIDTH 12.9 % (11.5-14.0); SEGMENTED NEUTROPHILS % (AUTO) 46.9 % (42-78); TOTAL CELLS COUNTED % (AUTO) 100 %; WHITE BLOOD COUNT 7.4 10^3/uL (4.0-10.5)
[2018-11-16 05:22] LABS: INTERNATIONAL RATION (INR) 0.95; PROTHROMBIN TIME 13.2 SEC (11.4-15.4)
[2018-11-16 05:23] LABS: PARTIAL THROMBOPLASTIN TIME 26.5 SEC (23.5-35.8)
[2018-11-16 05:38] LABS: ALANINE AMINOTRANSFERASE 64 U/L (9-52); ALBUMIN 3.5 g/dL (3.5-5.0); ALKALINE PHOSPHATASE 80 U/L (38-126); ANION GAP 7 (5-19); ASPARTATE AMINO TRANSFERASE 38 U/L (14-36); BILIRUBIN,DIRECT 0.2 mg/dL (0.0-0.4); BILIRUBIN,TOTAL 0.3 mg/dL (0.2-1.3); BLOOD UREA NITROGEN 20 mg/dL (7-20); CARBON DIOXIDE 27 mmol/L (22-30); CHLORIDE 110 mmol/L (98-107); CHOLESTEROL 181.69 mg/dL (0-200); GLUCOSE 98 mg/dL (75-110); POTASSIUM 3.2 mmol/L (3.6-5.0); SODIUM 143.6 mmol/L (137-145); TOTAL PROTEIN 6.2 g/dL (6.3-8.2); TRIGLYCERIDES 295 mg/dL (<150)
[2018-11-16 05:49] LABS: DIRECT LDL 109 mg/dL (<100)
[2018-11-16] MEDS: HEPARIN SOD (PORCINE) 5,000 UNIT/ML 1 ML SYRINGE SUBCUT SCH ×3 (05:55→21:11)
--- NOTE | 2018-11-16 09:16 | RADIOLOGY REPORT (SQ) ---
EXAM DESCRIPTION: MRI HEAD WITHOUT; MRA HEAD WITHOUT COMPLETED DATE/TIME: 11/16/2018 9:01 am REASON FOR STUDY: TIA COMPARISON: CT brain 11/15/2018 TECHNIQUE: Multiplanar imaging includes non-contrasted T1, T2, FLAIR, and diffusion with ADC map seq uences. Images stored on PACS. Noncontrast 3D [id number]-yptlgm [place] MRA was performed. Source data and And maximum intens ity projected images were reviewed and saved to pac's. Additional 3 dimensional post-processing perf ormed to develop Maximal Intensity Projection images (MIP) LIMITATIONS: None. FINDINGS: ANATOMY: No developmental anomalies. Normal vascular flow voids. Pituitary fossa normal. CSF SPACES: Normal in size and contour. No hemorrhage. CEREBRUM: Sulci and gyri normal in size and contour. Minimal spotty age-appropriate increased white matter signal on FLAIR imaging. No evidence of hemorrhage, mass, or extraaxial fluid collection. POSTERIOR FOSSA: No signal alteration. No hemorrhage. No edema, masses or mass effect. Internal alan tory canals, cerebello-pontine angles, mastoids normal. DIFFUSION IMAGING: Negative for acute or sub-acute infarction. ORBITS: No masses. Globes normal. PARANASAL SINUSES: No fluid levels. Mucosa normal. COW MRA: No [place] stenosis, vascular malformation, or aneurysm. No other significant find ing. IMPRESSION: ESSENTIALLY NORMAL MRI OF THE BRAIN WITHOUT INTRAVENOUS GADOLINIUM CONTRAST. NO [place] STENOSIS, VASCULAR MALFORMATION, OR ANEURYSM. EVIDENCE OF ACUTE STROKE: NO. TECHNICAL DOCUMENTATION: JOB ID: [id number] [employer]- All Rights Reserved Reading location - IP/workstation name: [email or web address]
--- NOTE | 2018-11-16 09:16 | RADIOLOGY REPORT (SQ) ---
EXAM DESCRIPTION: MRI HEAD WITHOUT; MRA HEAD WITHOUT COMPLETED DATE/TIME: 11/16/2018 9:01 am REASON FOR STUDY: TIA COMPARISON: CT brain 11/15/2018 TECHNIQUE: Multiplanar imaging includes non-contrasted T1, T2, FLAIR, and diffusion with ADC map seq uences. Images stored on PACS. Noncontrast 3D psus-lj-xaltcl [place] MRA was performed. Source data and And maximum intens ity projected images were reviewed and saved to pac's. Additional 3 dimensional post-processing perf ormed to develop Maximal Intensity Projection images (MIP) LIMITATIONS: None. FINDINGS: ANATOMY: No developmental anomalies. Normal vascular flow voids. Pituitary fossa normal. CSF SPACES: Normal in size and contour. No hemorrhage. CEREBRUM: Sulci and gyri normal in size and contour. Minimal spotty age-appropriate increased white matter signal on FLAIR imaging. No evidence of hemorrhage, mass, or extraaxial fluid collection. POSTERIOR FOSSA: No signal alteration. No hemorrhage. No edema, masses or mass effect. Internal alan tory canals, cerebello-pontine angles, mastoids normal. DIFFUSION IMAGING: Negative for acute or sub-acute infarction. ORBITS: No masses. Globes normal. PARANASAL SINUSES: No fluid levels. Mucosa normal. COW MRA: No [place] of [place] stenosis, vascular malformation, or aneurysm. No other significant find ing. IMPRESSION: ESSENTIALLY NORMAL MRI OF THE BRAIN WITHOUT INTRAVENOUS GADOLINIUM CONTRAST. NO [place] STENOSIS, VASCULAR MALFORMATION, OR ANEURYSM. EVIDENCE OF ACUTE STROKE: NO. TECHNICAL DOCUMENTATION: JOB ID: [id number] [employer]- All Rights Reserved Reading location - IP/workstation name: [email or web address]
[2018-11-16] MEDS: FAMOTIDINE 20 MG TABLET PO SCH ×2 (09:47→21:11)
[2018-11-16] MEDS: DOCUSATE SODIUM 100 MG CAPSULE PO SCH ×2 (09:47→19:05)
[2018-11-16] MEDS: ASPIRIN 81 MG TABLET, CHEWABLE PO SCH (09:48)
--- NOTE | 2018-11-16 11:53 | RADIOLOGY REPORT (SQ) ---
EXAM DESCRIPTION: CAROTID DOPPLER COMPLETED DATE/TIME: 11/16/2018 11:09 am REASON FOR STUDY: TIA COMPARISON: MRI brain, MRA exam [place] 11/16/2018 CT brain 11/15/2018 TECHNIQUE: Grayscale ultrasound, Doppler velocity and spectra, and color Doppler images acquired of the extra-cranial carotid and vertebral arteries. Images stored on PACS. LIMITATIONS: None. FINDINGS: RIGHT CAROTID CCA Velocities: Within normal limits, right common carotid artery peak systolic velocity 0.53 m/sec ICA Velocities Peak systolic 1.8 m/s. End diastolic 0.6 m/s. Proximal ICA/CCA peak systolic ratio 3.1 minutes. Calcific and noncalcific plaque is present at the right carotid bifurcation. Velocities suggest 50 t o 69% diameter narrowing. This correlates visually with the grayscale imaging. LEFT CAROTID CCA Velocities: Within normal limits. Left common carotid artery peak systolic velocity 0.66 m/sec. ICA Velocities Peak systolic 0.8 m/s. End diastolic 0.28 m/s. Proximal ICA/CCA peak systolic ratio 2.0. Spectra normal. No significant plaque. VERTEBRAL ARTERIES: Antegrade flow. Normal waveforms. SUBCLAVIAN ARTERIES: Not evaluated OTHER: No other significant finding. IMPRESSION: Mixed calcific and noncalcific plaque at the right carotid bifurcation causing 50 to 69% diameter stenosis by velocity criteria. No flow significant stenosis left carotid bifurcation. Antegrade pulsatile vertebral artery flow bilaterally COMMENT: Quality ID #[id number]: Velocity criteria are extrapolated from the diameter data as defined by nadia ramos Society of Radiologists in Ultrasound Consensus Conference. Radiology 2003: 229; 340-346. TECHNICAL DOCUMENTATION: JOB ID: [id number] [employer]- All Rights Reserved Reading location - IP/workstation name: [email or web address]
[2018-11-16] MEDS ORDERED: PROMETHAZINE HCL 25 MG TABLET PO PRN (13:03)
--- NOTE | 2018-11-16 17:49 | PDOC PROGRESS REPORT ---
Subjective Progress Note for:: 11/16/18 Subjective:: No adverse events overnight. No new complaints. Vital signs been stable. No numbness or weakness or tingling. No trouble eating or drinking. No visual disturbances. Reason For Visit: TIA Physical Exam Vital Signs: Temp Pulse Resp BP Pulse Ox 97.6 F 64 16 165/93 H 99 11/16/18 11:58 11/16/18 14:00 11/16/18 14:00 11/16/18 14:00 11/16/18 14:00 Intake & Output 11/15/18 11/16/18 11/17/18 06:59 06:59 06:59 Weight 73.3 kg General appearance: PRESENT: no acute distress, cooperative, disheveled Neck exam: PRESENT: full ROM. ABSENT: carotid bruit, JVD, lymphadenopathy Respiratory exam: PRESENT: clear to auscultation anyi, symmetrical, unlabored. ABSENT: accessory muscle use, decreased breath sounds, prolonged expiratory phas, rales, rhonchi, tachypnea, wheezes Cardiovascular exam: PRESENT: RRR, +S1, +S2 Pulses: PRESENT: normal carotid pulses Vascular exam: PRESENT: normal capillary refill GI/Abdominal exam: PRESENT: normal bowel sounds, soft. ABSENT: distended, guarding, rebound, tenderness Extremities exam: ABSENT: clubbing, pedal edema Musculoskeletal exam: PRESENT: normal inspection. ABSENT: deformity Neurological exam: PRESENT: alert, awake, oriented to person, oriented to place, oriented to time, oriented to situation Psychiatric exam: PRESENT: appropriate affect, normal mood Skin exam: PRESENT: dry, warm Results Laboratory Results: 11/16/18 04:47 11/16/18 04:47 11/16/18 11/16/18 11/16/18 04:47 04:47 04:47 WBC 7.4 RBC 4.06 Hgb 13.9 Hct 40.2 MCV 99 H MCH 34.3 H MCHC 34.6 RDW 12.9 Plt Count 196 Seg Neutrophils % 46.9 Lymphocytes % 41.8 Monocytes % 9.7 Eosinophils % 1.3 Basophils % 0.3 Absolute Neutrophils 3.5 Absolute Lymphocytes 3.1 Absolute Monocytes 0.7 Absolute Eosinophils 0.1 Absolute Basophils 0.0 Sodium 143.6 Potassium 3.2 L Chloride 110 H Carbon Dioxide 27 Anion Gap 7 BUN 20 Creatinine 0.55 Est GFR ( Amer) > 60 Est GFR (Non-Af Amer) > 60 Glucose 98 Calcium 9.0 Total Bilirubin 0.3 AST 38 H ALT 64 H Alkaline Phosphatase 80 Total Protein 6.2 L Albumin 3.5 Triglycerides 295 H Cholesterol 181.69 LDL Cholesterol Direct 109 H VLDL Cholesterol 59.0 H HDL Cholesterol 49 TSH 0.35 L 11/15/18 11/15/18 12:17 12:17 Creatine Kinase 53 CK-MB (CK-2) 0.49 Troponin I < 0.012 Impressions: Chest X-Ray 11/15/18 12:19 IMPRESSION: NO ACUTE RADIOGRAPHIC FINDING IN THE CHEST. Head CT 11/15/18 12:19 IMPRESSION: NORMAL BRAIN CT WITHOUT CONTRAST. EVIDENCE OF ACUTE STROKE: NO. Brain MRI with MRA 11/16/18 00:00 IMPRESSION: ESSENTIALLY NORMAL MRI OF THE BRAIN WITHOUT INTRAVENOUS GADOLINIUM CONTRAST. NO LUMMI OF GARCIA STENOSIS, VASCULAR MALFORMATION, OR ANEURYSM. EVIDENCE OF ACUTE STROKE: NO. Carotid Doppler Study 11/16/18 00:00 IMPRESSION: Mixed calcific and noncalcific plaque at the right carotid bifurcation causing 50 to 69% diameter stenosis by velocity criteria. No flow significant stenosis left carotid bifurcation. Antegrade pulsatile vertebral artery flow bilaterally Head MRI 11/16/18 00:00 IMPRESSION: ESSENTIALLY NORMAL MRI OF THE BRAIN WITHOUT INTRAVENOUS GADOLINIUM CONTRAST. NO LUMMI OF GARCIA STENOSIS, VASCULAR MALFORMATION, OR ANEURYSM. EVIDENCE OF ACUTE STROKE: NO. Assessment and Plan - Diagnosis (1) Transient ischemic attack Is this a current diagnosis for this admission?: Yes Plan: MRI was negative. Carotid Doppler showed 50-69% stenosis in the right carotid system. Echocardiogram is pending. It sounded more like a syncopal episode and a TIA according to the patient's description. She wants to leave that we need the echocardiogram first. If it is negative, I will set her up for an outpatient Holter monitor. - Time Time Spent with patient: 25-34 minutes
[2018-11-16] MEDS: ATORVASTATIN CALCIUM 40 MG TABLET PO SCH (21:11)
[2018-11-17] MEDS: HEPARIN SOD (PORCINE) 5,000 UNIT/ML 1 ML SYRINGE SUBCUT SCH (05:24)
[2018-11-17] MEDS: ASPIRIN 81 MG TABLET, CHEWABLE PO SCH (10:02)
[2018-11-17] MEDS: FAMOTIDINE 20 MG TABLET PO SCH (10:03)
[2018-11-17] MEDS: DOCUSATE SODIUM 100 MG CAPSULE PO SCH (10:03)
[2018-11-17] MEDS ORDERED: HYDROCHLOROTHIAZIDE 12.5 MG TABLET PO SCH (10:30)
[2018-11-17 15:19] VITALS: BP 160/82
--- NOTE | 2018-11-17 15:35 | PDOC DISCHARGE SUMMARY ---
General - Admit/Disc Date/PCP Admission Date/Primary Care Provider: 11/15/18 17:01 NINA CEBALLOS, DO Discharge Date: 11/17/18 - Discharge Diagnosis (1) Transient ischemic attack Is this a current diagnosis for this admission?: Yes Summary: Workup for stroke was negative. The episode she described sounded more like a syncopal episode, but she has had no events on telemetry. No palpitations. No arrhythmias detected. Echocardiogram is pending, and if there is anything abnormal we will call her. We will set her up for an outpatient Holter monitor. She will continue on her home aspirin. - Additional Information Discharge Diet: Cardiac Discharge Activity: Activity As Tolerated Home Medications: Atorvastatin Calcium [Lipitor 20 mg Tablet] 20 mg PO QHS 11/16/18 Clobetasol Propionate [Temovate 0.05% Cream 15 gm] 1 applic TP BID 11/16/18 Hydrocodone/Acetaminophen [Charlotte 7.5-325 mg Tablet] 1 tab PO Q8HP PRN 11/16/18 Levothyroxine Sodium [Synthroid 0.1 mg Tablet] 0.2 mg PO Q6AM 11/16/18 Prednisone [Deltasone 10 mg Tablet] 10 mg PO .TAPER DOSE MDD filled 11/11 for 10 day supply 11/16/18 Telmisartan/Hydrochlorothiazid [Telmisartan-Hctz 40-12.5 mg Tb] 1 each PO DAILY 11/16/18 Tolterodine Tartrate [Tolterodine Tartrate ER] 2 mg PO DAILY 11/16/18 Venlafaxine HCl ER [Effexor Xr 75 mg Cap.sr] 75 mg PO DAILY 11/16/18 Zolpidem Tartrate [Ambien 5 mg Tablet] 10 mg PO HSP PRN 11/16/18 Aspirin [Aspirin 81 mg Chewable Tablet] 81 mg PO DAILY tab.chew 11/17/18 History of Present Illness History of Present Illness: JEFFRY ZHANG is a 58 year old female past medical history of hypertension, dyslipidemia, tobacco abuse (30 years), depression, plantar fasciitis was brought to ED by EMS for possible stroke. As per family she was sitting at the counter with her grandaughter when she proceeded to feel light headed. For the next thing patient remembers is waking up in the ED. Does not recall any preceding symptoms. As per ED physician's conversation with the son who was present at the time of arrival he stated patient was complaining of light headedness then turned around to face him and he noted she has some left facial droop and then had a syncopal episode and he caught the patient and laid her on the floor. Son reports the patient was unconscious for approximately 4 minutes and began talking 10 minutes after arrival. Upon arrival to ED patient's speech, thought content, motor function all appear to be returning to baseline according to the son, but she seemed to the patient is quite drowsy, and falls asleep when not stimulated. On my encounter after 5 PM patient is comfortably resting in bed in no apparent distress, alert oriented x4, normal speech, does not recall any events except the fact that she was standing at the counter and the next thing she remembers she was in the hospital. Denies any preceding events. Denies any history of head trauma, seizure disorders, recreational drug abuse, arrhythmia, CAD, prior TIA or CVA, any recent illness. Denies any fever, chills, nausea, vomiting, diarrhea, constipation or any urinary symptoms. Physical examination patient is nonfocal, speech, thought content seem to be within normal limits. A CT head in ED did not show any acute abnormalities. Was found to have a blood pressure of 150s-170s, otherwise CMP, CBC, troponins, UA all within normal limit s. Hospital Course Hospital Course: Workup for stroke was negative. The episode she described sounded more like a syncopal episode, but she has had no events on telemetry. No palpitations. No arrhythmias detected. Echocardiogram is pending, and if there is anything abnormal we will call her. We will set her up for an outpatient Holter monitor. She will continue on her home aspirin. Physical Exam Vital Signs: Temp Pulse Resp BP Pulse Ox 97.9 F 61 18 160/82 H 97 11/17/18 15:15 11/17/18 15:15 11/17/18 15:15 11/17/18 15:15 11/17/18 15:15 Intake & Output 11/16/18 11/17/18 11/18/18 06:59 06:59 06:59 Intake Total 237 Balance 237 Weight 73.3 kg 77.8 kg General appearance: PRESENT: no acute distress, cooperative, disheveled Neck exam: PRESENT: full ROM. ABSENT: carotid bruit, JVD, lymphadenopathy Respiratory exam: PRESENT: clear to auscultation anyi, symmetrical, unlabored. ABSENT: accessory muscle use, decreased breath sounds, prolonged expiratory phas, rales, rhonchi, tachypnea, wheezes Cardiovascular exam: PRESENT: RRR, +S1, +S2 Pulses: PRESENT: normal carotid pulses Vascular exam: PRESENT: normal capillary refill GI/Abdominal exam: PRESENT: normal bowel sounds, soft. ABSENT: distended, guarding, rebound, tenderness Extremities exam: ABSENT: clubbing, pedal edema Musculoskeletal exam: PRESENT: normal inspection. ABSENT: deformity Neurological exam: PRESENT: alert, awake, oriented to person, oriented to place, oriented to time, oriented to situation Psychiatric exam: PRESENT: appropriate affect, normal mood Skin exam: PRESENT: dry, warm Results Laboratory Results: 11/16/18 04:47 11/16/18 04:47 11/15/18 11/15/18 12:17 12:17 Creatine Kinase 53 CK-MB (CK-2) 0.49 Troponin I < 0.012 Impressions: Chest X-Ray 11/15/18 12:19 IMPRESSION: NO ACUTE RADIOGRAPHIC FINDING IN THE CHEST. Head CT 11/15/18 12:19 IMPRESSION: NORMAL BRAIN CT WITHOUT CONTRAST. EVIDENCE OF ACUTE STROKE: NO. Brain MRI with MRA 11/16/18 00:00 IMPRESSION: ESSENTIALLY NORMAL MRI OF THE BRAIN WITHOUT INTRAVENOUS GADOLINIUM CONTRAST. NO NIKOLSKI OF GARCIA STENOSIS, VASCULAR MALFORMATION, OR ANEURYSM. EVIDENCE OF ACUTE STROKE: NO. Carotid Doppler Study 11/16/18 00:00 IMPRESSION: Mixed calcific and noncalcific plaque at the right carotid bifurcation causing 50 to 69% diameter stenosis by velocity criteria. No flow significant stenosis left carotid bifurcation. Antegrade pulsatile vertebral artery flow bilaterally Head MRI 11/16/18 00:00 IMPRESSION: ESSENTIALLY NORMAL MRI OF THE BRAIN WITHOUT INTRAVENOUS GADOLINIUM CONTRAST. NO NIKOLSKI OF GARCIA STENOSIS, VASCULAR MALFORMATION, OR ANEURYSM. EVIDENCE OF ACUTE STROKE: NO. Qualifiers - * PATIENT BEING DISCHARGED WITH ANY OF THE FOLLOWING DIAGNOSIS: No
--- NOTE | 2018-11-18 01:03 | XCELERA REPORT ---
[address] [address] Transthoracic Echocardiogram Report Name: JEFFRY ZHANG Age: 58 yrs Gender: Female : 1960 Patient Status: Inpatient Patient Location: [address] [place], [place] [id number] Study Date: 11/16/2018 09:55 AM Height: 64 in Weight: 180 lb BSA: 1.9 m2 Procedure: A two-dimensional transthoracic echocardiogram with color flow Doppler was performed. The study was technically difficult with many images being suboptimal in quality. Reason For Study: TIA History: TIA. Ordering Physician: NOE XAVIER Performed By: Barb Herrera Interpretation Summary There is no obvious cardiac source of embolus noted on this transthoracic echocardiogram. Follow-up with a SABINE is suggested if cardiac source is still suspected. The left ventricle is normal in size. There is normal left ventricular wall thickness. The left ventricular ejection fraction is within normal limits. LV EF is > than 60% Doppler measurements suggest normal left ventricular diastolic function The left ventricular wall motion is normal. There is no thrombus. The right ventricular apex is not well visualized. Right atrium not well visualized secondary to technical limitations The left atrial size is normal. There is no evidence of mitral valve prolapse. There is no vegetation seen on the mitral valve. There is no mitral valve stenosis. There is no mitral regurgitation noted. There is no aortic valve stenosis There is no LVOT obstruction. No aortic regurgitation is present. There is no tricuspid stenosis. There is a trace amount of tricuspid regurgitation There is mild pulmonary hypertension by echo RVSP is 34 mm kof Hg , with RA mean of 10. There is no pulmonic valvular stenosis. There is no pulmonic valvular regurgitation. The aortic root is normal size. There is no pericardial effusion. There is no obvious cardiac source of embolus noted on this transthoracic echocardiogram. Follow-up with a SABINE is suggested if cardiac source is still suspected MMode/2D Measurements & Calculations IVSd: 0.66 cm LVIDd: 5.8 cm FS: 40.7 % Ao root diam: 2.7 cm LVIDs: 3.5 cm EDV(Teich): 168.3 ml Ao root area: 5.8 cm2 LVPWd: 1.0 cm ESV(Teich): 49.4 ml EF(Teich): 70.6 % Doppler Measurements & Calculations MV E max migdalia: MV dec slope: Ao V2 max: LV V1 max P.1 cm/sec 636.6 cm/sec2 144.1 cm/sec 3.4 mmHg MV A max migdalia: MV dec time: 0.15 secAo max PG: LV V1 max: 79.8 cm/sec 8.3 mmHg 91.7 cm/sec MV E/A: 1.2 PA V2 max: TR max migdalia: 76.3 cm/sec 246.1 cm/sec PA max P.3 mmHg TR max P.2 mmHg Left Ventricle The left ventricle is normal in size. There is normal left ventricular wall thickness. The left ventricular ejection fraction is within normal limits. LV EF is > than 60%. Doppler measurements suggest normal left ventricular diastolic function. The left ventricular wall motion is normal. There is no thrombus. Right Ventricle The right ventricular apex is not well visualized. Atria Right atrium not well visualized secondary to technical limitations. The left atrial size is normal. Mitral Valve There is no evidence of mitral valve prolapse. There is no vegetation seen on the mitral valve. There is no mitral valve stenosis. There is no mitral regurgitation noted. Aortic Valve There is no aortic valvular vegetation. There is no aortic valve stenosis. There is no LVOT obstruction. No aortic regurgitation is present. Tricuspid Valve There is no tricuspid stenosis. There is a trace amount of tricuspid regurgitation. There is mild pulmonary hypertension by echo. RVSP is 34 mm kof Hg , with RA mean of 10. Pulmonic Valve There is no pulmonic valvular stenosis. There is no pulmonic valvular regurgitation. Great Vessels The aortic root is normal size. Effusions There is no pericardial effusion. : NOE XAVIER > Tonia Reese
[2018-11-18] MEDS ORDERED: LOSARTAN POTASSIUM 50 MG TABLET PO SCH (10:30)
== END 2018-11-17 18:13 | disposition home or self-care (01) ==
LOC: ER 12:14 → INTOOBSV 17:01 → EH 17:01 → 3W 19:31
PROVIDERS: ADMIT Internal Medicine; ATTEND Internal Medicine
DX: G45.9 Transient cerebral ischemic attack, unspecified (principal); I10 Essential (primary) hypertension; E78.5 Hyperlipidemia, unspecified; F32.9 Major depressive disorder, single episode, unspecified; M72.2 Plantar fascial fibromatosis; R40.0 Somnolence; F17.210 Nicotine dependence, cigarettes, uncomplicated; E87.6 Hypokalemia; E66.9 Obesity, unspecified; R55 Syncope and collapse; R06.83 Snoring; Z68.34 Body mass index [BMI] 34.0-34.9, adult; Z79.891 Long term (current) use of opiate analgesic; Z79.899 Other long term (current) drug therapy; Z79.82 Long term (current) use of aspirin; Z79.1 Long term (current) use of non-steroidal anti-inflammatories (NSAID); Z98.890 Other specified postprocedural states
CPT/HCPCS: 93005; 99291; 36415 ×2; 82553; 82962 ×2; 82550; 84443; 85025 ×2; 85610 ×2; 85730 ×2; 80053 ×2; 84484; 80307; 83036; 80061; 93306; 93880; 70551; 70544; 71045; 70450; 93010; J1644 ×3; G0378

== ENCOUNTER → 2018-12-02 | Outpatient (CLI) | payer OTHER ==
[~2018-12-02] MED LIST: REGADENOSON INJ 0.4 MG/5 ML DISP.SYRIN IV ONE
--- NOTE | 2018-12-03 22:07 | DRAGON STRESS TEST REPORT ---
Intravenous Lexiscan Cardiolite stress test using single photon emmision computerized tomography. Date of procedure: 12/02/2018. Ordering Provider: Dr. Tonia Reese.Patient's status: Out Patient Indication: Syncope. Coronary risk factors: Age, hypertension, dyslipidemia, and tobacco abuse disorder. Resting EKG: Sinus Rhythm. Poor R wave anterior leads. Stress EKG: No changes of ischemia. Patient had no chest pain or discomfort, and there were no arrhythmias seen. Reason for termination: Protocol. Conclusions: Normal EKG and hemodynamic response to IV Lexiscan. Nuclear data: At rest the patient was given 12.75 millicuries of technetium 99m sestamibi injected intravenously. As per protocol rest non gated SPECT images were obtained. Subsequently the patient was given intravenous Lexiscan at a dose of 0.4 mg in 5 mL intravenously, followed by flush with normal saline. Subsequently the stress dose of 37.6 millicuries of technetium 99m sestamibi was injected intravenously. As per protocol stress gated images were obtained. Nuclear interpretation: Review of images showed that all segments of the myocardium had normal perfusion at rest, and normal perfusion post stress with IV Lexiscan. All segments of the myocardium had normal motion, contraction, and thickening by gated study. T. I D. ratio was read by the computer as borderline abnormal at 1.23.. Visually this is not reliable, and visually the TID is normal. Computer read rest, and stress left ventricular ejection fraction were 68 %, and 69 %, respectively. Conclusion: 1. There is no scintigraphic evidence of Lexiscan induced myocardial ischemia. 2. There is no scintigraphic evidence of myocardial infarction/scar. Recommendations: Aggressive risk factor modification, and treating the underlying co- morbidities. MTDD
== END ==
LOC: RAD 07:30
PROVIDERS: ATTEND Specialist
DX: R55 Syncope and collapse (principal)
CPT/HCPCS: 93017; 78452; A9500; J2785; Q9969

== ENCOUNTER → 2020-07-26 | Outpatient (CLI) | payer OTHER ==
--- NOTE | 2020-07-26 12:31 | RADIOLOGY REPORT (SQ) ---
EXAM DESCRIPTION: FINGER RIGHT IMAGES COMPLETED DATE/TIME: 07/26/2020 12:08 pm REASON FOR STUDY: (M79.89)OTHER SPECIFIED SOFT TISSUE DISORDERS M79.89 OTHER SPECIFIED SOFT TISSUE DISORDERS COMPARISON: None. NUMBER OF VIEWS: Three views. TECHNIQUE: AP, lateral, and oblique images acquired of the right third finger. LIMITATIONS: None. FINDINGS: MINERALIZATION: Decreased. BONES: Mildly displaced fracture at the dorsal aspect of the base of the 3rd distal phalanx with intr a-articular involvement. No additional evidence of acute bony abnormality. SOFT TISSUES: Soft tissue swelling about the 3rd digit. OTHER: No other significant finding. IMPRESSION: Mildly displaced fracture at the dorsal aspect of the base of the 3rd distal phalanx wit h intra-articular extension. COMMENT: SITE OF TRAUMA/COMPLAINT MARKED/STAMP COMPLETED: YES. TECHNICAL DOCUMENTATION: JOB ID: [id number] 2010 [employer]- All Rights Reserved Reading location - IP/workstation name: [email or web address]
== END ==
LOC: RAD 11:53
PROVIDERS: ATTEND Nurse Practitioner Family
DX: S62.638A Displaced fracture of distal phalanx of other finger, initial encounter for closed fracture (principal); X58.XXXA Exposure to other specified factors, initial encounter; M79.89 Other specified soft tissue disorders